=== PATIENT | female | born 1945 | race African-American/Black ===

== ENCOUNTER 2017-02-28 18:45 | Emergency (ER) | payer MEDICARE ==
[~2017-02-28] VITALS: Ht 170.2 cm; Wt 79.5 kg
[~2017-02-28 18:45] MED LIST: 1-ME1LIQ OR; ALBI1INJ SQ; CLOR3.755 PO; GLIM2 PO; GLUCTAB OR; KLOR8TAB PO; LISI-360 PO; MAXZTAB PO; MEVA40TA PO; NITR-29 PO
[2017-02-28 18:55] VITALS: BP 114/70; PULSE 101; RESP 14; TEMP 97.9; O2SAT 99
[2017-02-28] MEDS ORDERED: ALBI1INJ2 SQ (19:13)
[2017-02-28] MEDS ORDERED: METF1000 PO (19:13)
[2017-02-28] MEDS ORDERED: EMPA1TAB3 PO (19:13)
[2017-02-28] MEDS ORDERED: GLIP5TAB8 PO (19:13)
[2017-02-28] MEDS ORDERED: AMLO10TA2 PO (19:13)
--- NOTE | 2017-02-28 19:47 | RADRPT ---
EXAM DATE/TIME: 02/28/2017 19:18 [facility] COMPARISON: No previous studies available for comparison. INDICATIONS : Trauma, fall. MEDICAL HISTORY : None. SURGICAL HISTORY : None. ENCOUNTER: Initial ACUITY: 1 day PAIN SCORE: 7/10 LOCATION: Right knee. FINDINGS: A standard 4 view examination of the right knee was obtained and demonstrates joint space loss, scler osis and mild spurring in the medial and lateral compartments. There is fullness in the suprapatellar bursa region consistent with joint effusion. There is mild spurring of the posterior patella. There is normal mineralization and alignment. CONCLUSION: 1. No acute fracture or malalignment. 2. Mild to moderate osteoarthritic changes and small joint effusion. Amor Garza MD on February 28, 2017 at 19:44 Board Certified Radiologist. This report was verified electronically.
--- NOTE | 2017-02-28 19:47 | RADRPT ---
EXAM DATE/TIME: 02/28/2017 19:20 [facility] COMPARISON: No previous studies available for comparison. INDICATIONS : Trauma, fall. MEDICAL HISTORY : None. SURGICAL HISTORY : None. ENCOUNTER: Initial ACUITY: 1 day PAIN SCORE: 5/10 LOCATION: Right lower leg. FINDINGS: Two view examination of the right tibia demonstrates no evidence of fracture or dislocation. There is mild osteopenia. Degenerative changes are again noted in the knee with joint effusion. CONCLUSION: 1. Negative trauma study. Amor Garza MD on February 28, 2017 at 19:45 Board Certified Radiologist. This report was verified electronically.
--- NOTE | 2017-02-28 19:50 | RADRPT ---
EXAM DATE/TIME: 02/28/2017 19:25 [facility] COMPARISON: No previous studies available for comparison. INDICATIONS : Trauma, fall. MEDICAL HISTORY : None. SURGICAL HISTORY : None. ENCOUNTER: Initial ACUITY: 1 day PAIN SCORE: 2/10 LOCATION: Right foot. FINDINGS: Three view examination of the right foot demonstrates apparent subtle nondisplaced transverse fractur e through the fifth proximal phalanx. The metatarsals appear intact. There is mild osteopenia and min imal degenerative change. No focal soft tissue abnormality is identified radiographically. CONCLUSION: Apparent subtle nondisplaced transverse fracture through the fifth proximal phalanx. Amor Garza MD on February 28, 2017 at 19:45 Board Certified Radiologist. This report was verified electronically.
--- NOTE | 2017-02-28 19:53 | PD ---
HPI Chief Complaint: Musculoskeletal Complaint Time Seen by Provider: 19:10 Travel History International Travel<30 days: No Contact w/Intl Traveler<30days: No Traveled to known affect area: No History of Present Illness HPI 71-year-old female presents emergency department for evaluation of right lower extremity pain status post trip and fall. Injury occurred 1 hour prior to arrival. She reports that she was walking up steps when she tripped falling forward into her injuring her right lower extremity on the edge of the steps. She denies head injury. No loss of consciousness. She denies any other injury except the right lower extremity. She reports pain in the right knee, right gomez, right foot. Pain is constant, worse with movement, relieved with rest, severity 6 out of 10. She denies headache, chest pain, abdominal pain, nausea vomiting or diarrhea. PFSH Past Medical History Cancer: No Cardiovascular Problems: No High Cholesterol: Yes Diabetes: Yes Patient Takes Glucophage: Yes Diminished Hearing: No Hepatitis: No Hiatal Hernia: No Hypertension: Yes Respiratory: No Thyroid Disease: No Triglycerides - High: Yes Tetanus Vaccination: < 5 Years Influenza Vaccination: Yes Menopausal: Yes Past Surgical History Gynecologic Surgery: Yes (hysterectomy) Hysterectomy: Yes Pacemaker: No Other Surgery: Yes (COLONOSCOPY LAST YEAR) Family History Family Myocardial Infarction: Yes (MOTHER AT 66 YRS. AND BROTHER AT 40 YRS.) Social History Alcohol Use: No Tobacco Use: No Substance Use: No Allergies-Medications (Allergen,Severity, Reaction): Coded Allergies: Biaxin (Verified Allergy, Severe, Hives, 07/21/15) Reported Meds & Prescriptions Reported Meds & Active Scripts Active Reported Amlodipine (Amlodipine Besylate) 10 Mg Tab 10 Mg PO DAILY Glipizide 5 Mg Tab 2 Mg PO BIDAC Take 30 minutes before a meal Metformin (Metformin HCl) 1,000 Mg Tab 1,000 Mg PO BIDPC With meals Jardiance (Empagliflozin) 25 Mg Tab 25 Mg PO DAILY Tanzeum 4-Pack Inj (Albiglutide) 50 Mg Pfpen 25 Mg SQ Q7D Physical Exam Narrative GENERAL: Well-nourished, well-developed patient. SKIN: Focused skin assessment warm/dry. HEAD: Normocephalic. Atraumatic EYES: No scleral icterus. No injection or drainage. NECK: Supple, trachea midline. No JVD or lymphadenopathy. CARDIOVASCULAR: Regular rate and rhythm without murmurs, gallops, or rubs. RESPIRATORY: Breath sounds equal bilaterally. No accessory muscle use. GASTROINTESTINAL: Abdomen soft, non-tender, nondistended. MUSCULOSKELETAL: No cyanosis, or edema. Right knee: Mild swelling in anterior tenderness, joint stable, no effusion. Right tib-fib: Tenderness over the proximal tibia with small amount of ecchymosis. Right foot: Pain and tenderness throughout the foot. No swelling. 2+ distal pulses. No deformity. Neurovascularly intact. BACK: Nontender without obvious deformity. No CVA tenderness. Data Data Last Documented VS Vital Signs Date Time Temp Pulse Resp B/P Pulse Ox O2 Delivery O2 Flow Rate FiO2 02/28/17 18:55 97.9 101 14 114/70 99 Orders Knee, Complete (4vws) (02/28/17 ) Tibia/Fibula (Ap/Lat) (02/28/17 ) Foot, Complete ([id number]) (02/28/17 ) ^ Shiv Bandage (02/28/17 19:59) Shoe Post Op (02/28/17 ) Acetaminophen (Tylenol) (02/28/17 20:00) MDM Medical Decision Making Medical Screen Exam Complete: Yes Emergency Medical Condition: Yes Medical Record Reviewed: Yes Differential Diagnosis Right knee pain and contusion versus fracture, right tib-fib pain contusion versus fracture, right foot pain contusion versus fracture Narrative Course 71-year-old female presents emergency Department status post trip and fall going up the stairs she has right knee, right gomez, right foot pain. She denies head injury, no loss of consciousness. She denies any other injury. Patient is ambulatory. X-ray pending X-ray right knee: No fracture X-ray Right tib-fib: No fracture X-ray Right foot: Subtle nondisplaced right fifth phalanx fracture Right knee Shiv wrapped. Postop shoe for right foot. Discuss diagnostic findings with patient and family. She agrees to follow up with primary care provider. Ice and elevate the extremity. OTC Motrin or Tylenol for pain. Patient agrees to plan Diagnosis Primary Impression: Closed fracture of phalanx of right fifth toe Qualified Code: S92.501A - Closed fracture of phalanx of right fifth toe, initial encounter Additional Impression: Contusion Qualified Code: S80.11XA - Contusion of right lower leg, initial encounter Referrals: Primary Care Physician Additional Instructions: Ice and elevate the extremity. Review the Shiv wrap on the right knee for support. With a postop shoe until follow-up with her primary doctor. Return to the emergency department if he developed new or worsening symptoms. Disposition: 01 DISCHARGE HOME Condition: Stable Jodie Faustin Feb 28, 2017 19:53
[2017-02-28] MEDS ORDERED: ACETAMINOPHEN 325 MG TAB PO ONE (20:00)
== END 2017-02-28 20:30 | disposition home or self-care (01) ==
LOC: PHEFT 18:45
DX: S92.501A Displaced unspecified fracture of right lesser toe(s), initial encounter for closed fracture (principal); S80.11XA Contusion of right lower leg, initial encounter; W01.0XXA Fall on same level from slipping, tripping and stumbling without subsequent striking against object, initial encounter; E78.00 Pure hypercholesterolemia, unspecified; E11.9 Type 2 diabetes mellitus without complications; I10 Essential (primary) hypertension
CPT/HCPCS: 73564; 73590; 73630; 99283; L3260

== ENCOUNTER 2017-07-31 10:42 | Emergency (ER) | payer MEDICARE ==
[~2017-07-31] VITALS: Ht 170.2 cm; Wt 77.8 kg
[~2017-07-31 10:42] MED LIST changes: -1-ME1LIQ OR; -ALBI1INJ SQ; +ALBI1INJ2 SQ; +AMLO10TA2 PO; -CLOR3.755 PO; +EMPA1TAB3 PO; -GLIM2 PO; +GLIP5TAB8 PO; -GLUCTAB OR; -KLOR8TAB PO; -LISI-360 PO; -MAXZTAB PO; +METF1000 PO; -MEVA40TA PO; -NITR-29 PO
[2017-07-31 10:56] VITALS: BP 136/63; PULSE 78; RESP 16; TEMP 97.5; O2SAT 98
[2017-07-31] MEDS ORDERED: LOVA40TA PO (11:11)
--- NOTE | 2017-07-31 11:18 | PD ---
HPI Chief Complaint: ENT Complaint Time Seen by Provider: 11:09 Travel History International Travel<30 days: No Contact w/Intl Traveler<30days: No Traveled to known affect area: No History of Present Illness HPI patient states left neck lump, near angle of jaw, appeared one day ago, painful , 7/10, sharp, nonradiating, appears to be getting larger and more painful. pt states that prior to 2 days ago she did not notice any pain or lump.....no alleviating factors, but aggravated by touching lump....denies assoc factors of fever/[place]/cp/abdpain/backpain/n/v/d/visual changes pcp: dr cervantes pmhx: htn, hyperchol, dm, PFSH Past Medical History Cancer: No Cardiovascular Problems: No High Cholesterol: Yes Diabetes: Yes Patient Takes Glucophage: Yes Diminished Hearing: No Hepatitis: No Hiatal Hernia: No Hypertension: Yes Respiratory: No Thyroid Disease: No Triglycerides - High: Yes Tetanus Vaccination: > 5 Years ?: Not Menopausal: Yes Past Surgical History Gynecologic Surgery: Yes (hysterectomy) Hysterectomy: Yes Pacemaker: No Other Surgery: Yes (COLONOSCOPY LAST YEAR) Family History Family Myocardial Infarction: Yes (MOTHER AT 66 YRS. AND BROTHER AT 40 YRS.) Social History Alcohol Use: No Tobacco Use: No Substance Use: No Allergies-Medications (Allergen,Severity, Reaction): Coded Allergies: clarithromycin (Unverified Allergy, Severe, Hives, 07/31/17) Reported Meds & Prescriptions Reported Meds & Active Scripts Active Reported Lovastatin 40 Mg Tab 40 Mg PO BID Amlodipine (Amlodipine Besylate) 10 Mg Tab 10 Mg PO DAILY Glipizide 5 Mg Tab 2 Mg PO BIDAC Take 30 minutes before a meal Metformin (Metformin HCl) 1,000 Mg Tab 1,000 Mg PO BIDPC With meals Jardiance (Empagliflozin) 25 Mg Tab 25 Mg PO DAILY Tanzeum 4-Pack Inj (Albiglutide) 50 Mg Pfpen 25 Mg SQ Q7D Review of Systems General / Constitutional: No: Fever Eyes: No: Visual changes HENT: Positive: Masses Cardiovascular: No: Chest Pain or Discomfort Respiratory: No: Shortness of Breath Gastrointestinal: No: Abdominal Pain Genitourinary: No: Dysuria Musculoskeletal: No: Pain Skin: No Rash Neurologic: No: Weakness Psychiatric: No: Depression Endocrine: No: Polydipsia Hematologic/Lymphatic: No: Easy Bruising Physical Exam Narrative GENERAL: SKIN: Warm and dry. HEAD: Atraumatic. Normocephalic. EYES: Pupils equal and round. No scleral icterus. No injection or drainage. ENT: No nasal bleeding or discharge. Mucous membranes pink and moist. NECK: Trachea midline. No JVD. 7x5cm mass, without cellulitic changes/or streaking, no pulsatile mass, near salivary gland area, no intraoral abscess CARDIOVASCULAR: Regular rate and rhythm. RESPIRATORY: No accessory muscle use. Clear to auscultation. Breath sounds equal bilaterally. GASTROINTESTINAL: Abdomen soft, non-tender, nondistended. Hepatic and splenic margins not palpable. MUSCULOSKELETAL: Extremities without clubbing, cyanosis, or edema. No obvious deformities. NEUROLOGICAL: Awake and alert. No obvious cranial nerve deficits. Motor grossly within normal limits. Five out of 5 muscle strength in the arms and legs. Normal speech. PSYCHIATRIC: Appropriate mood and affect; insight and judgment normal. Data Data Last Documented VS Vital Signs Date Time Temp Pulse Resp B/P (MAP) Pulse Ox O2 Delivery O2 Flow Rate FiO2 07/31/17 10:56 97.5 78 16 136/63 (87) 98 Orders Orders Complete Blood Count With Diff (07/31/17 11:09) Comprehensive Metabolic Panel (07/31/17 11:09) Prothrombin Time / Inr (Pt) (07/31/17 11:09) Act Partial Throm Time (Ptt) (07/31/17 11:09) Ct Soft Tiss Neck W Iv Cont (07/31/17 ) Iohexol 350 Inj (Omnipaque 350 Inj) (07/31/17 12:05) Labs Laboratory Tests Test 07/31/17 11:20 White Blood Count 7.0 TH/MM3 Red Blood Count 4.99 MIL/MM3 Hemoglobin 12.6 GM/DL Hematocrit 39.1 % Mean Corpuscular Volume 78.4 FL Mean Corpuscular Hemoglobin 25.3 PG Mean Corpuscular Hemoglobin Concent 32.3 % Red Cell Distribution Width 14.1 % Platelet Count 207 TH/MM3 Mean Platelet Volume 8.3 FL Neutrophils (%) (Auto) 52.5 % Lymphocytes (%) (Auto) 41.1 % Monocytes (%) (Auto) 3.7 % Eosinophils (%) (Auto) 0.7 % Basophils (%) (Auto) 2.0 % Neutrophils # (Auto) 3.7 TH/MM3 Lymphocytes # (Auto) 2.9 TH/MM3 Monocytes # (Auto) 0.3 TH/MM3 Eosinophils # (Auto) 0.0 TH/MM3 Basophils # (Auto) 0.1 TH/MM3 CBC Comment DIFF FINAL Differential Comment Prothrombin Time 10.3 SEC Prothromb Time International Ratio 0.9 RATIO Activated Partial Thromboplast Time 21.6 SEC Blood Urea Nitrogen 22 MG/DL Creatinine 1.10 MG/DL Random Glucose 137 MG/DL Total Protein 8.2 GM/DL Albumin 4.1 GM/DL Calcium Level 9.8 MG/DL Alkaline Phosphatase 91 U/L Aspartate Amino Transf (AST/SGOT) 71 U/L Alanine Aminotransferase (ALT/SGPT) 58 U/L Total Bilirubin 0.3 MG/DL Sodium Level 138 MEQ/L Potassium Level 4.6 MEQ/L Chloride Level 103 MEQ/L Carbon Dioxide Level 25.0 MEQ/L Anion Gap 10 MEQ/L Estimat Glomerular Filtration Rate 59 ML/MIN [facility] Medical Decision Making Medical Screen Exam Complete: Yes Emergency Medical Condition: Yes Medical Record Reviewed: Yes Differential Diagnosis salivary gland infection v sialolithiasis v abscess v malignant/CA Narrative Course CBC, CMP WERE WNL, CT NECK 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 Physician Communication Physician Communication D/W DR RAY, WHO RECC D/C HOME AND F/U WITH DR CERVANTES FOR FURTHER WORKUP AND REFERRALS Diagnosis 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
[2017-07-31 11:25] LABS: AUTOMATED NEUTROPHIL # 3.7 TH/MM3 (1.8-7.7); BASOPHIL # 0.1 TH/MM3 (0-0.2); EOSINOPHIL % 0.7 % (0.0-4.0); HEMATOCRIT 39.1 % (35.0-46.0); HEMO FLAGS DIFF FINAL; LYMPH % 41.1 % (9.0-44.0); LYMPHOCYTE # 2.9 TH/MM3 (1.0-4.8); MEAN CELL VOLUME 78.4 FL (80.0-100.0); MEAN CORPUSCULAR HEMOGLOBIN 25.3 PG (27.0-34.0); MEAN CORPUSCULAR HGB CONC 32.3 % (32.0-36.0); MONO % 3.7 % (0.0-8.0); NEUT % 52.5 % (16.0-70.0); PLATELET COUNT 207 TH/MM3 (150-450); RED BLOOD COUNT 4.99 MIL/MM3 (4.00-5.30); RED CELL DISTRIBUTION WIDTH 14.1 % (11.6-17.2)
[2017-07-31 11:32] LABS: CHLORIDE 103 MEQ/L (98-107); POTASSIUM 4.6 MEQ/L (3.5-5.1); SODIUM (NA) 138 MEQ/L (136-145)
[2017-07-31 11:36] LABS: ANION GAP 10 MEQ/L (5-15); APTT (PATIENT) 21.6 SEC (24.3-30.1); BLOOD UREA NITROGEN 22 MG/DL (7-18); INTERNATIONAL NORMALIZED RATIO 0.9 RATIO; PROTHROMBIN TIME - PATIENT 10.3 SEC (9.8-11.6)
[2017-07-31 11:39] LABS: ALT (GPT) 58 U/L (10-53); AST (GOT) 71 U/L (15-37); GLOMERULAR FILTRATION RATE 59 ML/MIN (>89)
[2017-07-31 11:40] LABS: TOTAL BILIRUBIN ADULT 0.3 MG/DL (0.2-1.0)
[2017-07-31 11:42] LABS: ALKALINE PHOSPHATASE 91 U/L (45-117)
[2017-07-31] MEDS ORDERED: IOHEXOL 350 MG/ML 10 ML VIAL (for RAD DIAG) IVCONTRAST ONE (12:05)
--- NOTE | 2017-07-31 12:36 | RADRPT ---
EXAM DATE/TIME: 07/31/2017 11:58 [facility] COMPARISON: No previous studies available for comparison. INDICATIONS : Left sided neck pain and swelling. IV CONTRAST: 70 cc Omnipaque 350 (iohexol) IV RADIATION DOSE: 12.09 CTDIvol (mGy) MEDICAL HISTORY : Hypertension. Diabetes. SURGICAL HISTORY : Hysterectomy. ENCOUNTER: Initial ACUITY: 2 days PAIN SCALE: 7/10 LOCATION: Left neck TECHNIQUE: Volumetric scanning of the neck was performed. Using automated exposure control and adjustment of th e mA and/or kV according to patient size, radiation dose was kept as low as reasonably achievable to obtain optimal diagnostic quality images. DICOM format image data is available electronically for r eview and comparison. FINDINGS: The examination is abnormal demonstrating a large mass in the left neck which measures 4.7 cm in widt h and 2.6 cm in perpendicular there is intense and homogeneous contrast-enhancement. The mass appear s to be situated between the internal and external carotid artery very medial extent causes an indent ation on the dorsal lateral margin of the oral pharynx. No evidence of adenopathy. Prevertebral soft tissues are normal in thickness. Mild enlargement of t he thyroid without focal nodule. Super clavicular region is intact. The parotid and submandibular g lands are symmetric in appearance. dimension. CONCLUSION: Large homogeneously and intensely enhancing mass in the left neck which extends between the carotid b ranches, measures in excess of 4.7 cm and has imaging features characteristic of a paraganglioma. Christo Arnold MD on July 31, 2017 at 12:32 Board Certified Radiologist. This report was verified electronically.
[2017-07-31] MEDS ORDERED: TRAM50 PO (13:15)
[2017-07-31 13:39] VITALS: BP 109/58
== END 2017-07-31 13:53 | disposition home or self-care (01) ==
LOC: PHED 10:42
DX: R22.1 Localized swelling, mass and lump, neck (principal); E78.00 Pure hypercholesterolemia, unspecified; E11.9 Type 2 diabetes mellitus without complications; I10 Essential (primary) hypertension; Z79.84 Long term (current) use of oral hypoglycemic drugs; Z79.899 Other long term (current) drug therapy
CPT/HCPCS: 70491; 80053; 85025; 85610; 85730; 99284; Q9967

== ENCOUNTER 2017-12-12 20:14 | Observation (INO) | payer MEDICARE ==
[~2017-12-12] VITALS: Ht 172.7 cm; Wt 77.5 kg
[~2017-12-12 20:14] MED LIST changes: +LOVA40TA PO; +TRAM50 PO
[2017-12-12 20:26] VITALS: BP 158/72; PULSE 83; RESP 20; TEMP 98; O2SAT 97
[2017-12-12] MEDS ORDERED: LISI10TA3 PO (20:52)
[2017-12-12] MEDS ORDERED: TRIA37.53 PO (20:52)
[2017-12-12] MEDS ORDERED: MECL-62 PO (20:52)
[2017-12-12] MEDS ORDERED: COLC1TAB15 PO (20:52)
[2017-12-12] MEDS ORDERED: SODIUM CHLOR 0.9% 1000 ML INJ 1,000 ML IV ONE (21:15)
[2017-12-12] MEDS ORDERED: SODIUM CHLORIDE 0.9% FLUSH 10 ML FLUSH IVF PRN (21:15)
[2017-12-12] MEDS ORDERED: LORazepam 2 MG/ML VIAL IV PUSH ONE (21:15)
[2017-12-12] MEDS ORDERED: ONDANSETRON HCL 4 MG/2 ML VIAL IV PUSH ONE (21:15)
[2017-12-12] MEDS ORDERED: MECLIZINE HCL 25 MG TAB PO ONE (21:15)
[2017-12-12 21:16] LABS: AUTOMATED NEUTROPHIL # 4.4 TH/MM3 (1.8-7.7); BASOPHIL # 0.1 TH/MM3 (0-0.2); BASOPHIL % 1.1 % (0.0-2.0); EOSINOPHIL % 0.5 % (0.0-4.0); HEMATOCRIT 44.2 % (35.0-46.0); HEMOGLOBIN 14.6 GM/DL (11.6-15.3); LYMPH % 40.2 % (9.0-44.0); LYMPHOCYTE # 3.3 TH/MM3 (1.0-4.8); MEAN CELL VOLUME 78.1 FL (80.0-100.0); MEAN CORPUSCULAR HEMOGLOBIN 25.8 PG (27.0-34.0); MEAN CORPUSCULAR HGB CONC 33.1 % (32.0-36.0); MONO % 4.5 % (0.0-8.0); MONOCYTE # 0.4 TH/MM3 (0-0.9); NEUT % 53.7 % (16.0-70.0); PLATELET COUNT 238 TH/MM3 (150-450); RED BLOOD COUNT 5.67 MIL/MM3 (4.00-5.30); RED CELL DISTRIBUTION WIDTH 14.5 % (11.6-17.2); WHITE BLOOD COUNT 8.2 TH/MM3 (4.0-11.0)
--- NOTE | 2017-12-12 21:23 | PD ---
HPI Chief Complaint: Dizziness Time Seen by Provider: 20:49 Travel History International Travel<30 days: No Contact w/Intl Traveler<30days: No Traveled to known affect area: No History of Present Illness HPI Patient is a 72-year-old female with history of hypertension, diabetes, hyperlipidemia, vertigo who presents to the emergency room with complaints of dizziness. Patient reports that dizziness began around 3 AM last night, patient reports that she woke up felt diaphoretic, reports that she felt as if the whole world was spinning around her. Patient reports that symptoms were abrupt, reports that nothing makes symptoms better or worse. Patient reports that she has been feeling ataxic all day, reports that she laid in bed all day as she was unable to ambulate due to her dizziness. Patient reports that she waited until her came home to bring her to the hospital. Patient reports that she does have history of vertigo, reports that today symptoms are different from her typical vertiginous symptoms Patient reports that she did have a fall on Tuesday where she accidentally fell from a chair and hit her head on the pavement on her driveway. Patient reports that she suffered no loss of consciousness, reports that she currently is not on any anticoagulants. 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 PFSH Past Medical History Cancer: No Cardiovascular Problems: No High Cholesterol: Yes Diabetes: Yes Patient Takes Glucophage: Yes (12-12-17 1000) Diminished Hearing: No Hepatitis: No Hiatal Hernia: No Hypertension: Yes Medical other: Yes (VERTIGO) Respiratory: No Immunizations Current: Yes Thyroid Disease: No Triglycerides - High: Yes Tetanus Vaccination: > 5 Years Influenza Vaccination: Yes ?: Not Menopausal: Yes Past Surgical History Gynecologic Surgery: Yes (hysterectomy) Hysterectomy: Yes Pacemaker: No Other Surgery: Yes (COLONOSCOPY LAST YEAR) Family History Family Myocardial Infarction: Yes (MOTHER AT 66 YRS. AND BROTHER AT 40 YRS.) Social History Alcohol Use: No Tobacco Use: No Substance Use: No Allergies-Medications (Allergen,Severity, Reaction): Coded Allergies: clarithromycin (Unverified Allergy, Severe, Hives, 12/12/17) Reported Meds & Prescriptions Reported Meds & Active Scripts Active Reported Colchicine 0.6 Mg Tab 0.6 Mg PO DAILY Meclizine (Meclizine HCl) 25 Mg Tab 25 Mg PO DIRECTED PRN Lisinopril 10 Mg Tab 10 Mg PO DAILY Triamterene-Hydrochlorothiazide 37.5-25 Mg Cap 1 Cap PO DAILY Lovastatin 40 Mg Tab 40 Mg PO HS Amlodipine (Amlodipine Besylate) 10 Mg Tab 10 Mg PO DAILY Glipizide 5 Mg Tab 4 Mg PO BIDAC Take 30 minutes before a meal Metformin (Metformin HCl) 1,000 Mg Tab 1,000 Mg PO BIDPC With meals Jardiance (Empagliflozin) 25 Mg Tab 25 Mg PO DAILY Tanzeum 4-Pack Inj (Albiglutide) 50 Mg Pfpen 25 Mg SQ Q7D Review of Systems General / Constitutional: No: Fever Eyes: No: Visual changes HENT: Positive: Headaches, Lightheadedness Cardiovascular: No: Chest Pain or Discomfort Respiratory: No: Shortness of Breath Gastrointestinal: Positive: Nausea, Vomiting, No: Abdominal Pain Genitourinary: No: Dysuria Musculoskeletal: No: Pain Skin: No Rash Neurologic: Positive: Weakness, Dizziness Psychiatric: No: Depression Endocrine: No: Polydipsia Hematologic/Lymphatic: No: Easy Bruising Physical Exam Narrative GENERAL: moderate distress SKIN: Focused skin assessment warm/dry. HEAD: Atraumatic. Normocephalic. EYES: Pupils equal and round. No scleral icterus. No injection or drainage. Patient with horizontal nystagmus ENT: No nasal bleeding or discharge. Mucous membranes pink and moist. NECK: Trachea midline. No JVD. CARDIOVASCULAR: Regular rate and rhythm. No murmur appreciated. RESPIRATORY: No accessory muscle use. Clear to auscultation. Breath sounds equal bilaterally. GASTROINTESTINAL: Abdomen soft, non-tender, nondistended. Hepatic and splenic margins not palpable. MUSCULOSKELETAL: No obvious deformities. No clubbing. No cyanosis. No edema. NEUROLOGICAL: Awake and alert. No obvious cranial nerve deficits. Motor grossly within normal limits. Normal speech. CN 2-12 grossly intact with no obvious neuro deficits PSYCHIATRIC: Appropriate mood and affect; insight and judgment normal. Data Data Last Documented VS Vital Signs Date Time Temp Pulse Resp B/P (MAP) Pulse Ox O2 Delivery O2 Flow Rate FiO2 12/12/17 22:27 70 18 131/64 (86) 99 Room Air 12/12/17 20:26 98.0 Orders Orders Electrocardiogram (12/12/17 21:04) Prothrombin Time / Inr (Pt) (4/9/18 21:04) Act Partial Throm Time (Ptt) (12/12/17 21:04) Complete Blood Count With Diff (12/12/17 21:04) Basic Metabolic Panel (Bmp) (12/12/17 21:04) Urinalysis - C+S If Indicated (12/12/17 21:04) Ct Brain W/O Iv Contrast(Rout) (12/12/17 21:04) Ecg Monitoring (12/12/17 21:04) Iv Access Insert/Monitor (12/12/17 21:04) Oximetry (12/12/17 21:04) Sodium Chloride 0.9% Flush (Ns Flush) (12/12/17 21:15) Lorazepam Inj (Ativan Inj) (12/12/17 21:15) Meclizine (Antivert) (12/12/17 21:15) Ondansetron Inj (Zofran Inj) (12/12/17 21:15) Sodium Chlor 0.9% 1000 Ml Inj (Ns 1000 M (12/12/17 21:15) Urine Culture (12/12/17 22:00) Labs Laboratory Tests Test 12/12/17 20:50 12/12/17 22:00 White Blood Count 8.2 TH/MM3 Red Blood Count 5.67 MIL/MM3 Hemoglobin 14.6 GM/DL Hematocrit 44.2 % Mean Corpuscular Volume 78.1 FL Mean Corpuscular Hemoglobin 25.8 PG Mean Corpuscular Hemoglobin Concent 33.1 % Red Cell Distribution Width 14.5 % Platelet Count 238 TH/MM3 Mean Platelet Volume 9.0 FL Neutrophils (%) (Auto) 53.7 % Lymphocytes (%) (Auto) 40.2 % Monocytes (%) (Auto) 4.5 % Eosinophils (%) (Auto) 0.5 % Basophils (%) (Auto) 1.1 % Neutrophils # (Auto) 4.4 TH/MM3 Lymphocytes # (Auto) 3.3 TH/MM3 Monocytes # (Auto) 0.4 TH/MM3 Eosinophils # (Auto) 0.0 TH/MM3 Basophils # (Auto) 0.1 TH/MM3 CBC Comment DIFF FINAL Differential Comment Prothrombin Time 10.8 SEC Prothromb Time International Ratio 1.1 RATIO Activated Partial Thromboplast Time 25.6 SEC Blood Urea Nitrogen 17 MG/DL Creatinine 0.94 MG/DL Random Glucose 148 MG/DL Calcium Level 10.1 MG/DL Sodium Level 138 MEQ/L Potassium Level 3.5 MEQ/L Chloride Level 101 MEQ/L Carbon Dioxide Level 26.4 MEQ/L Anion Gap 11 MEQ/L Estimat Glomerular Filtration Rate 71 ML/MIN Urine Color YELLOW Urine Turbidity CLEAR Urine pH 5.0 Urine Specific [place] 1.020 Urine Protein 30 mg/dL Urine Glucose (UA) 1000 OR GREATER mg/dL Urine Ketones 15 mg/dL Urine Occult Blood NEG Urine Nitrite NEG Urine Bilirubin NEG Urine Urobilinogen 0.2 MG/DL Urine Leukocyte Esterase NEG Urine RBC 0-3 /hpf Urine WBC 6-8 /hpf Urine Squamous Epithelial Cells 6-8 /hpf Urine Bacteria FEW /hpf Microscopic Urinalysis Comment CATH-CULTURE IND MDM Medical Decision Making Medical Screen Exam Complete: Yes Emergency Medical Condition: Yes Medical Record Reviewed: Yes Interpretation(s) EKG at 2114: NSR at 80bpm, qt/qtc: 376/412, no acute st or t wave changes Vital Signs Date Time Temp Pulse Resp B/P (MAP) Pulse Ox O2 Delivery O2 Flow Rate FiO2 12/12/17 20:41 18 97 Room Air 12/12/17 20:26 98.0 83 20 158/72 (100) 97 Differential Diagnosis Vertigo, intracranial hemorrhage, vertebrobasilar insufficiency, electrolyte abnormalities Narrative Course 72-year-old female who presents to the emergency room with complaints of dizziness which started at 3 AM in the morning. Patient awoke from her sleep with these symptoms, reports associated nausea and vomiting with sensation of room spinning along with ataxia upon ambulation. During the course of the patients emergency department visit, the patients history, examination, and differential diagnosis were reviewed with the patient. The patient was placed on a residential monitor with oximetry and frequent blood pressure monitoring. The patient had an IV access obtained and blood work sent for analysis. The patient was initially provided IV fluids, IV Ativan, IV Zofran as well as Antivert. The patients laboratory studies were reviewed and remarkable for: Laboratory Tests Test 12/12/17 20:50 12/12/17 22:00 White Blood Count 8.2 TH/MM3 (4.0-11.0) Red Blood Count 5.67 MIL/MM3 (4.00-5.30) Hemoglobin 14.6 GM/DL (11.6-15.3) Hematocrit 44.2 % (35.0-46.0) Mean Corpuscular Volume 78.1 FL (80.0-100.0) Mean Corpuscular Hemoglobin 25.8 PG (27.0-34.0) Mean Corpuscular Hemoglobin Concent 33.1 % (32.0-36.0) Red Cell Distribution Width 14.5 % (11.6-17.2) Platelet Count 238 TH/MM3 (150-450) Mean Platelet Volume 9.0 FL (7.0-11.0) Neutrophils (%) (Auto) 53.7 % (16.0-70.0) Lymphocytes (%) (Auto) 40.2 % (9.0-44.0) Monocytes (%) (Auto) 4.5 % (0.0-8.0) Eosinophils (%) (Auto) 0.5 % (0.0-4.0) Basophils (%) (Auto) 1.1 % (0.0-2.0) Neutrophils # (Auto) 4.4 TH/MM3 (1.8-7.7) Lymphocytes # (Auto) 3.3 TH/MM3 (1.0-4.8) Monocytes # (Auto) 0.4 TH/MM3 (0-0.9) Eosinophils # (Auto) 0.0 TH/MM3 (0-0.4) Basophils # (Auto) 0.1 TH/MM3 (0-0.2) CBC Comment DIFF FINAL Differential Comment Prothrombin Time 10.8 SEC (9.8-11.6) Prothromb Time International Ratio 1.1 RATIO Activated Partial Thromboplast Time 25.6 SEC (24.3-30.1) Blood Urea Nitrogen 17 MG/DL (7-18) Creatinine 0.94 MG/DL (0.50-1.00) Random Glucose 148 MG/DL (74-106) Calcium Level 10.1 MG/DL (8.5-10.1) Sodium Level 138 MEQ/L (136-145) Potassium Level 3.5 MEQ/L (3.5-5.1) Chloride Level 101 MEQ/L (98-107) Carbon Dioxide Level 26.4 MEQ/L (21.0-32.0) Anion Gap 11 MEQ/L (5-15) Estimat Glomerular Filtration Rate 71 ML/MIN (>89) Urine Color YELLOW (YELLW/STRAW) Urine Turbidity CLEAR (CLEAR) Urine pH 5.0 (5.0-8.5) Urine Specific [place] 1.020 (1.002-1.035) Urine Protein 30 mg/dL (NEG-TRACE) Urine Glucose (UA) 1000 OR GREATER mg/dL Urine Ketones 15 mg/dL (NEG) Urine Occult Blood NEG (NEG) Urine Nitrite NEG (NEG) Urine Bilirubin NEG (NEG) Urine Urobilinogen 0.2 MG/DL (LESS THAN Urine Leukocyte Esterase NEG (NEG) Urine RBC 0-3 /hpf (0-3) Urine WBC 6-8 /hpf (0-5) Urine Squamous Epithelial Cells 6-8 /hpf (0-5) Urine Bacteria FEW /hpf (NONE) Microscopic Urinalysis Comment CATH-CULTURE IND Radiology studies were reviewed and remarkable for Last Impressions Head CT 12/12/172103 Signed Impressions: Service Date/Time: Tuesday, December 12, 2017 21:27 - CONCLUSION: 1. No acute intracranial abnormalities. Mucosal thickening of the left maxillary sinus. Mason Ruiz MD Patient reevaluated, patient reports that she is not feeling any better, patient reports that she still feels very dizzy, she is ataxic on ambulation. Plan to admit her to the hospital for further evaluation of her dizziness as I cannot rule out vertebrobasilar insufficiency. Case reviewed with Dr. Anderson who accepts pt to service Diagnosis Primary Impression: Dizziness Admitting Information Admitting Physician Requests: Observation Mayra Coronel DO Dec 12, 2017 21:23
[2017-12-12 21:29] LABS: CALCIUM 10.1 MG/DL (8.5-10.1)
[2017-12-12 21:30] LABS: BICARBONATE 26.4 MEQ/L (21.0-32.0)
[2017-12-12 21:33] LABS: CREATININE 0.94 MG/DL (0.50-1.00)
[2017-12-12 21:41] VITALS: BP 147/74; PULSE 79; RESP 18; O2SAT 95
[2017-12-12 21:42] LABS: INTERNATIONAL NORMALIZED RATIO 1.1 RATIO; PROTHROMBIN TIME - PATIENT 10.8 SEC (9.8-11.6)
--- NOTE | 2017-12-12 22:08 | RADRPT ---
EXAM DATE/TIME: 12/12/2017 21:27 [facility] COMPARISON: No previous studies available for comparison. INDICATIONS : Dizziness. RADIATION DOSE: 55.62 CTDIvol (mGy) MEDICAL HISTORY : Hypertension. Diabetes mellitus type 2. SURGICAL HISTORY : None. ENCOUNTER: Initial ACUITY: 1 day PAIN SCALE: 0/10 LOCATION: cranial TECHNIQUE: Multiple contiguous axial images were obtained of the head. Using automated exposure control and adj ustment of the mA and/or kV according to patient size, radiation dose was kept as low as reasonably a chievable to obtain optimal diagnostic quality images. DICOM format image data is available electro nically for review and comparison. FINDINGS: CEREBRUM: The ventricles are normal for age. No evidence of midline shift, mass lesion, hemorrhage or acute in farction. No extra-axial fluid collections are seen. POSTERIOR FOSSA: The cerebellum and brainstem are intact. The 4th ventricle is midline. The cerebellopontine angle i s unremarkable. EXTRACRANIAL: The visualized portion of the orbits is intact. SKULL: The calvaria is intact. No evidence of skull fracture. CONCLUSION: 1. No acute intracranial abnormalities. Mucosal thickening of the left maxillary sinus. Mason Ruiz MD on December 12, 2017 at 22:04 Board Certified Radiologist. This report was verified electronically.
[2017-12-12 22:13] LABS: BILIRUBIN, URINE NEG (NEG); BLOOD, URINE NEG (NEG); GLUCOSE,URINE 1000 OR GREATER mg/dL (NEG); KETONE, URINE 15 mg/dL (NEG); NITRITE,URINE NEG (NEG); URINE COLOR YELLOW (YELLW/STRAW); URINE LEUKOCYTE ESTERASE NEG (NEG)
[2017-12-12 22:18] LABS: BACTERIA, URINE FEW /hpf; RBC, URINE 0-3 /hpf (0-3)
[2017-12-12 22:27] VITALS: BP 131/64; PULSE 70; RESP 18; O2SAT 99
[2017-12-12] MEDS ORDERED: ASPIRIN 81 MG CHEW TAB CHEW ONE (22:45)
[2017-12-12] MEDS ORDERED: PROCHLORPERAZINE INJ 10 MG/2 ML VIAL IV PUSH ONE (23:15)
[2017-12-13] VITALS (7 sets, daily range): BP systolic 110–140; BP diastolic 61–69; PULSE 73–96; RESP 14–20; TEMP 96.1–98.6; O2SAT 93–97
--- NOTE | 2017-12-13 04:43 | EKG ---
Date Performed: 12/12/2017 Time Performed: 21:14:47 PTAGE: 72 years EKG: Sinus rhythm POSSIBLE LEFT ATRIAL ENLARGEMENT INFERIOR MYOCARDIAL INFARCTION ABNORMAL ECG No significant change f rom prior electrocardiogram. PREVIOUS TRACING : 07/21/2015 14.55 DOCTOR: Teto Jane Interpretating Date/Time 12/13/2017 04:42:25
[2017-12-13] MEDS ORDERED: ALBIGLUTIDE SQ SCH (06:45)
[2017-12-13] MEDS ORDERED: MECLIZINE HCL 25 MG TAB PO PRN (06:45)
[2017-12-13] MEDS ORDERED: GLIM4TAB PO (06:49)
--- NOTE | 2017-12-13 07:44 | MH ---
cc: Delmar Anderson MD DATE OF ADMISSION: 12/12/2017 ADMISSION DIAGNOSIS: 1. Dysequilibrium/vertigo, possible positional vertigo. 2. Hypertension. 3. Hyperlipidemia. 4. Type 2 diabetes mellitus. 5. Obesity. PERTINENT HISTORY: This is a 69-year-old black female who awakened in the embroidery specialist hours of 12/12/2017 around 3 a.m. with the room kind of spinning around. She got a little diaphoretic, a little nauseated. She stated it lasted for a little while and then in the morning it was still present if she would try to get up or move around, so she pretty much laid in bed most of the day. She felt a little bit off balance or off kilter so was not able to ambulate very easily because of the dysequilibrium and vertigo. She had no headache. She waited until her came home and he took her to the hospital where she was admitted for observation last evening. A CT brain scan was negative in the ED. She states she did have a fall 2 days prior from a chair and hit her head on the pavement on the driveway, but did not lose consciousness. She is not on any anticoagulants. She states her symptoms are better this morning. She does not feel near as the symptoms she had yesterday. She has no headache, no chest pain or palpitations. MEDICAL HISTORY: She is under treatment for hypertension, hyperlipidemia, type 2 diabetes mellitus and gout. She denies any history of heart attack, angina, CHF, no lung disease. She has no liver disease or kidney disease. She had a normal colonoscopy in 2008. She has had no prior stroke or seizures. No thyroid disease, no peptic ulcer disease. She was diagnosed with a paraganglioma and has been to the [facility] for this and may be having surgery up there for that. PAST SURGICAL HISTORY: She has had a RAOUL and BSO in 1990. She had a colonoscopy 11/08/2008 that was normal. ALLERGIES: BIAXIN CAUSES HIVES. CURRENT MEDICATIONS: She is on glimepiride 4 mg twice a day, Jardiance 25 mg a day, metformin 1000 mg twice a day, Tanzeum 25 mg subcutaneous every 7 days, amlodipine 10 mg a day, lisinopril 10 mg a day, triamterene/hydrochlorothiazide 37.5/25 one a day. She has meclizine at home 25 mg that she has used off and on for a while for intermittent vertigo which she has had in the past. Colchicine 0.6 mg 1 daily. FAMILY HISTORY: Her mother at 65 of a heart attack. She also had hypertension and had breast cancer. She never knew her natural father. She has 3 sisters who have diabetes. SOCIAL HISTORY: She is and a retired schoolteacher. She does not use alcohol and has never smoked. REVIEW OF SYSTEMS: GENERAL: No fever, chills, or sweats or recent viral symptoms. HEENT: No double vision, blurred vision. No trouble with her hearing. No ringing in her ears. She had no nasal symptoms or sore throat. CARDIOVASCULAR: No chest pain, orthopnea, PND. PULMONARY: No cough, hemoptysis or wheezing. GASTROINTESTINAL: No diarrhea or abdominal pain. She did have some nausea when she had the vertigo. : Without complaints. EXTREMITIES: Without swelling. SKIN: Without rash. PSYCHIATRIC: Without complaints. NEUROLOGIC: As mentioned, she has no weakness in her arms and legs. No numbness, no double vision or blurred vision. No trouble swallowing. PHYSICAL EXAMINATION: GENERAL: A pleasant, black female in no distress. VITAL SIGNS: Her temperature is 96.1, pulse 81, respirations 20, BP is good 130/61, O2 saturations have been in around 97 to 99%. HEENT: Pupils are equal. Sclerae nonicteric. Nose without lesion. Mouth without inflammation or lesion. NECK: Without bruit. No JVD. HEART: Regular rate and rhythm. No murmurs or gallops. LUNGS: Clear. ABDOMEN: Soft, nontender. No masses. EXTREMITIES: No edema. Pulses good in both warm feet. No calf tenderness. NEUROLOGIC: She is oriented x 3. Motor and sensory intact. Cranial nerves intact. [id number] testing normal. I did not attempt to walk her this morning. IMAGING STUDIES: CT brain scan showed no acute process. LABORATORY DATA: Her BUN was 17, creatinine 0.94, GFR 71, glucose was 148. Sodium and potassium normal. White count 8.2, hemoglobin 14.6, platelets were 238,000. Urine showed 6-8 WBCs and some 6-8 epithelial cells. ASSESSMENT AND PLAN: As noted. PLAN: We have ordered an MRI of the brain with MRA of the neck and [facility]. If these tests are negative, she should be able to be discharged home. She will continue on some meclizine at home for a few days as well. We will continue her routine medications. Most likely this was a vertigo episode. No further recommendations at this time. MD CUBA Sims/LAZARA , 07:01 AM , 07:44 AM
[2017-12-13] MEDS: GLIMEPIRIDE 4 MG TAB PO SCH ×2 (08:10→16:40)
[2017-12-13] MEDS: metFORMIN HCL 500 MG TAB PO SCH ×2 (08:11→14:27)
[2017-12-13] MEDS ORDERED: LISINOPRIL 10 MG TAB PO SCH (09:00)
[2017-12-13] MEDS ORDERED: EMPAGLIFLOZIN 25 MG PO SCH ×2 (09:00)
[2017-12-13] MEDS ORDERED: ASPIRIN EC 81 MG TABEC PO SCH (09:00)
[2017-12-13] MEDS ORDERED: TRIAMTERENE/HCTZ 37.5 MG/25 MG CAP PO SCH (09:00)
[2017-12-13] MEDS ORDERED: COLCHICINE 0.6 MG TAB PO SCH (09:00)
[2017-12-13] MEDS ORDERED: GADODIAMIDE PF 287 MG/ML 20 ML VIAL (for RAD MRI) IV PUSH ONE (13:15)
--- NOTE | 2017-12-13 16:03 | RADRPT ---
EXAM DATE/TIME: 12/13/2017 13:46 [facility] COMPARISON: No previous studies available for comparison. INDICATIONS : CVA. MEDICAL HISTORY : Diabetes mellitus type 2. Hypertension. SURGICAL HISTORY : Hysterectomy. ENCOUNTER: Initial ACUITY: 2 day PAIN SCORE: 0/10 LOCATION: head Please note a normal MRA of the brain does not entirely exclude the possibility of a small aneurysm, nor the possibility of distal intracranial vessel disease. TECHNIQUE: 3D time of flight MRA was performed. Source images, multiplanar STS MIP, and 3D volume MIP reconstru ctions were reviewed. FINDINGS: There is excellent visualization of the major intracranial arteries out to the second-order branch ve ssels. There is no evidence for aneurysm, vessel truncation or stenosis, and no evidence for vascula r malformation. Examination of posterior fossa also demonstrates no evidence of aneurysm or vascular malformation. The left vertebral artery is dominant. CONCLUSION: 1. Unremarkable MR angiography of the brain. Bobby Rob MD on December 13, 2017 at 16:00 Board Certified Radiologist. This report was verified electronically.
--- NOTE | 2017-12-13 16:04 | RADRPT ---
EXAM DATE/TIME: 12/13/2017 13:46 [facility] COMPARISON: No previous studies available for comparison. INDICATIONS : CVA. MEDICAL HISTORY : Diabetes mellitus type 2. Hypertension. SURGICAL HISTORY : Hysterectomy. ENCOUNTER: Initial ACUITY: 2 day PAIN SCORE: 0/10 LOCATION: head TECHNIQUE: Multiplanar, multisequence MRI of the brain was performed without contrast. FINDINGS: MRI of the brain is performed in sagittal, axial and coronal planes. The craniocervical junction and midline structures are unremarkable. Diffusion weighted images demonstrate no abnormality. There is n o evidence of acute cortical infarction, acute hemorrhage, mass effect or midline shift is seen. Ther e is benign-appearing mucosal disease in the left maxillary sinus. Posterior fossa structures are unr emarkable. CONCLUSION: 1. No evidence of acute intracranial pathology. No masses are identified. Bobby Rob MD on December 13, 2017 at 16:01 Board Certified Radiologist. This report was verified electronically.
--- NOTE | 2017-12-13 16:37 | RADRPT ---
EXAM DATE/TIME: 12/13/2017 13:46 [facility] COMPARISON: CT SOFT TISSUE NECK W CONTRAST, July 31, 2017, 11:58. INDICATIONS : Stroke. Vertigo. CONTRAST: 20 cc Omniscan (gadodiamide) IV MEDICAL HISTORY : Hypertension. Diabetes mellitus type 2. SURGICAL HISTORY : Hysterectomy. ENCOUNTER: Initial ACUITY: 2 day PAIN SCORE: 0/10 LOCATION: neck Percent stenosis is calculated using the diameter of the stenotic region over the diameter of the nor mal distal internal carotid artery. TECHNIQUE: Bolus infused MRA of the extracranial circulation was performed using a neurovascular coil. Post pro cessing was performed including rotating subvolume maximum intensity projections of each carotid flower ry, rotating full volume maximum intensity projections of both carotid arteries, sagittal and coronal sliding thin slab reformations of each carotid artery, and left oblique sliding thin slab reformatio n through the aortic arch to include the origin of the arch branch vessels. FINDINGS: AORTIC ARCH: Aortic arch demonstrates no significant abnormalities. RIGHT CAROTID: The right common carotid artery is within normal limits without significant narrowing or atherosclero tic plaque. Carotid bulb, internal carotid artery, and external carotid arteries are within normal li mits without significant stenosis. LEFT CAROTID: The common carotid artery is within normal limits. There is splaying of the internal and extradural c arotid arteries secondary to a vascular mass. The mass measures approximately 4.5 x 3.5 cm, similar t o the prior CT. The internal carotid artery is deviated but demonstrates no significant stenosis. The external carotid artery is also displaced but demonstrates no significant stenosis. There is early v enous visualization likely related to the mass. VERTEBRALS: Vertebral arteries demonstrate no significant stenotic lesions. They are symmetric in size. CONCLUSION: 1. Neck arterial vasculature demonstrates no acute abnormality or significant stenosis. 2. There is splaying of the left internal and external carotid arteries secondary to a vascularized m ass measuring approximately 4.5 x 3.5 cm. 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 It results in slight arteriovenous shuntin g with early visualization of the venous structures on the left. Vinicio Farmer MD on December 13, 2017 at 16:26 Board Certified Radiologist. This report was verified electronically.
[2017-12-13] MEDS ORDERED: ECASA81 PO (17:06)
[2017-12-13] MEDS ORDERED: PRAVASTATIN SOD 40 MG TAB PO SCH (21:00)
== END 2017-12-13 18:00 | disposition home or self-care (01) ==
LOC: PHEFT 20:14 → PHEDA 22:40 → PH3A 12-13 00:36
PROVIDERS: ADMIT Family Medicine; ATTEND Family Medicine
DX: R42 Dizziness and giddiness (principal); R11.0 Nausea; R61 Generalized hyperhidrosis; R94.31 Abnormal electrocardiogram [ECG] [EKG]; R27.0 Ataxia, unspecified; I10 Essential (primary) hypertension; E78.00 Pure hypercholesterolemia, unspecified; E11.9 Type 2 diabetes mellitus without complications; E66.9 Obesity, unspecified; Z79.899 Other long term (current) drug therapy; Z79.84 Long term (current) use of oral hypoglycemic drugs; W07.XXXA Fall from chair, initial encounter
CPT/HCPCS: 70450; 70544; 70548; 70551; 80048; 81001; 85025; 85610; 85730; 87086; 93005; 96361; 96374; 96375; 99285; A9579; G0378; J0780; J2060; J2405; J7030